=== PATIENT | female | born 1995 | race Caucasian/White ===

== ENCOUNTER 2021-10-03 14:06 | Emergency (ER) | payer OTHER, SELFPAY ==
[2021-10-03 14:39] VITALS: BP 114/77; PULSE 79; RESP 18; TEMP 36.6; O2SAT 99; BMI 32.6
--- NOTE | 2021-10-03 16:13 | ED_ITS ---
HPI - General Adult General Chief complaint: Vaginal Bleeding Stated complaint: heavy menstrual bleeding Time Seen by Provider: 10/03/21 14:09 Source: patient Mode of arrival: ambulatory Limitations: no limitations History of Present Illness HPI narrative: 26-year-old female coming in today complaining of vaginal bleeding. She states that about a month ago she started spotting. She is 11 months . She has had spotting on and off during this . A month ago it became consistent and then about 1 week ago she states that she started having which she describes as a very happy. Having to change a super pad tampon every 1/2 hour to 2 hours. Today she felt slightly lightheaded so she came in for evaluation. She denies any shortness of breath. No headaches or blurry vision. No chest pain. She states that she does have uterine fibroids. She does have an OBGYN appointment in approximately 2 weeks. She is not on any control and is sexually active. Related Data Previous Rx's Medication Instructions Recorded medroxyprogesterone 10 mg tablet 10 mg PO DAILY #10 tab 10/03/21 Allergies Allergy/AdvReac Type Severity Reaction Status Date / Time latex Allergy Verified 10/03/21 14:39 Penicillins Allergy Verified 10/03/21 14:39 Review of Systems Status of ROS: Reports: 10 or more systems reviewed and unremarkable except as noted in History and below Exam Narrative: Exam Narrative: Well-nourished well-developed patient in no acute distress. Alert and oriented. Answers questions appropriately. Mood and affect are appropriate. Thoughts are goal oriented and rational. No tangential or magical thinking noted. Patient speaks in full sentences without needing to catch their breath. HEENT: Normocephalic atraumatic. Pupils are equally round reactive to light. Extraocular muscles are intact. Conjunctivae are moist without any icterus noted. Moist mucous membranes. Posterior pharynx is normal. Neck is soft without any lymphadenopathy or thyromegaly. No masses are appreciated. Cardiovascular: Heart is regular rate and rhythm S1 and S2 are present without any murmurs. Lungs: Clear to auscultation bilaterally no wheezes rhonchi or rales are appreciated. Patient takes deep breaths without any discomfort. Abdomen: Soft and nondistended with normal bowel sounds. No guarding or rebound. No masses or organomegaly appreciated. She does have minimal suprapubic tenderness. Extremities: Bilateral lower extremities are without edema. Normal DP and PT pulses. Skin: Well perfused without any obvious rashes. Const: Vital Signs, click to edit/add: Vital Signs - 24 hr 10/03/21 14:39 Temperature 97.9 F Pulse Rate [Right Pulse Oximeter] 79 Respiratory Rate 18 Blood Pressure [Ri ght Upper Arm] 114/77 Pulse Oximetry 99 Course Vital Signs Vital signs: Initial Vital Signs Temperature 97.9 F 10/03/21 14:39 Temperature Source Temporal Artery Scan 10/03/21 14:39 Pulse Rate 79 10/03/21 14:39 Respiratory Rate 18 10/03/21 14:39 Blood Pressure 114/77 10/03/21 14:39 Blood Pressure Mean 89 10/03/21 14:39 Blood Pressure Position Sitting 10/03/21 14:39 Pulse Oximetry 99 10/03/21 14:39 Oxygen Delivery Method 10/03/21 14:39 Vital Signs Temperature 97.9 F 10/03/21 14:39 Pulse Rate 79 10/03/21 14:39 Respiratory Rate 18 10/03/21 14:39 Blood Pressure 114/77 10/03/21 14:39 Pulse Oximetry 99 10/03/21 14:39 Temperature 97.9 F 10/03/21 14:39 Pulse Rate 79 10/03/21 14:39 Respiratory Rate 18 10/03/21 14:39 Blood Pressure 114/77 10/03/21 14:39 Pulse Oximetry 99 10/03/21 14:39 Medical Decision Making MDM Narrative Medical decision making narrative: CBC did not show any evidence of acute anemia. test was negative. We discussed daily progesterone for the following 10 days. Patient already has an appointment with distribution operation supervisor scheduled for the beginning of October and she is encouraged to keep that. Discussed returning to the ER if bleeding worsens. Patient was agreeable and had no other questions. Lab Data Lab results reviewed: Yes I reviewed the patient's lab results Labs: Lab Results 10/03/21 10/03/21 Range/Units 16:00 16:50 WBC 5.63 (4.50-11.00) K/uL RBC 4.21 (4.00-5.20) m/uL Hgb 12.2 (12.0-16.0) gm/dL Hct 36.6 (33.0-51.0) % MCV 87 (80-100) fL MCH 29 (26-34) pg MCHC 33 (32-36) gm/dL RDW Coeff of Alessandro 11.5 (11.5-15.5) % Plt Count 251 (140-440) K/uL Neut % (Auto) 52.0 (42.0-72.0) % Lymph % (Auto) 39.1 (20-44) % [place] % (Auto) 5.7 (0.0-11.0) % Eos % (Auto) 2.1 (0.0-7.0) % Baso % (Auto) 0.7 (0.0-3.0) % Neut # (Auto) 2.93 (1.7-7.0) K/uL Lymph # (Auto) 2.20 (0.90-2.90) K/uL [place] # (Auto) 0.30 (0.00-0.90) K/UL Eos # (Auto) 0.12 (0.00-0.50) K/uL Baso # (Auto) 0.04 (0.00-0.30) K/uL Abs Immat Gran (auto) 0.02 (0.00-0.30) K/uL HCG, Qual Negative (Negative) Discharge Plan Discharge Clinical Impression: Menometrorrhagia Patient Disposition: Home, Self-Care Condition: Stable Additional Instructions: Take progesterone as instructed. Return to the ER if your bleeding gets worse. Prescriptions: New medroxyprogesterone 10 mg tablet 10 mg PO DAILY Qty: 10 0RF Follow Up/Referrals: Judie Sheehan MD [Primary Care Provider] - Stand Alone Forms: [employer] Info Instructions
[2021-10-03 16:27] LABS: Basophils Absolute Auto 0.04 K/uL (0.00-0.30); Basophils Percent Auto 0.7 % (0.0-3.0); Eosinophils Absolute Auto 0.12 K/uL (0.00-0.50); Eosinophils Percent Auto 2.1 % (0.0-7.0); Hematocrit 36.6 % (33.0-51.0); Hemoglobin* 12.2 gm/dL (12.0-16.0); Immature Granulocytes Abs Auto 0.02 K/uL (0.00-0.30); Lymphocytes Percent Auto 39.1 % (20-44); Mean Corpuscular HGB Conc 33 gm/dL (32-36); Mean Corpuscular Hemoglobin 29 pg (26-34); Mean Corpuscular Volume 87 fL (80-100); Monocytes Percent Auto 5.7 % (0.0-11.0); Neutrophils Absolute Auto 2.93 K/uL (1.7-7.0); Platelet Count* 251 K/uL (140-440); RDW Coefficient of Variation % 11.5 % (11.5-15.5); Red Blood Count 4.21 m/uL (4.00-5.20); White Blood Count* 5.63 K/uL (4.50-11.00)
[2021-10-03 16:34] LABS: Slide Review Reflex No
[2021-10-03 16:56] LABS: HCG Qualitative* Negative (Negative)
== END 2021-10-03 17:25 | disposition home or self-care (01) ==
PROVIDERS: Emergency Provider Family Medicine; PCP Family Medicine
DX: N92.1 Excessive and frequent menstruation with irregular cycle (principal)
CPT/HCPCS: 36415; 84703; 85025; 99283; 99284

== ENCOUNTER 2022-11-23 09:00 | Outpatient (RCR) | payer BC, OTHER, SELFPAY | END 2022-11-23 10:13 | disposition home or self-care (01) | PROVIDERS: PCP Family Medicine; Visit Provider Chiropractor | DX: O71.6 Obstetric damage to pelvic joints and ligaments (principal); Z51.89 Encounter for other specified aftercare | CPT/HCPCS: 97110; 97112; 97161; 97535 ==

== ENCOUNTER 2024-02-13 14:02 | Emergency (ER) | payer BC, SELFPAY ==
[2024-02-13 14:22] VITALS: BP 131/83; PULSE 84; RESP 18; TEMP 36.9; O2SAT 98; BMI 33.4
--- NOTE | 2024-02-13 15:19 | CRLHL7_ITS ---
For Patients: As a result of the Century Cures Act, medical imaging exams and procedure reports are released immediately into your electronic medical record. You may view this report before your referring provider. If you have questions, please contact your health care provider. Indication: Chest pain Technique: Chest 2 views Comparison: None Findings/Impression: Cardiovascular and mediastinum: Heart size and vasculature are normal in caliber and appearance. Mediastinum is within normal limits. Lungs and pleural spaces: Lungs are clear. No sign of infiltrate or mass. No sign of pleural effusion. No pneumothorax. Bones and soft tissues: No significant findings. Dictated by Claude Sarabia MD @ 02/13/2024 4:17:16 PM (Electronically Signed)
--- NOTE | 2024-02-13 15:21 | ED.GENADULT ---
HPI - General Adult General Date Seen: 02/13/24 Chief complaint: Chest Pain Stated complaint: Chest pain Time Seen by Provider: 02/13/24 15:11 Source: patient Mode of arrival: ambulatory Limitations: no limitations History of Present Illness HPI narrative: Patient is a 28-year-old woman here for evaluation of chest pain. She is 9 weeks , this is her 6 and she has 5 living children. She has no history of any hypercoagulability, did have placenta previa with 1 of her previous pregnancies, but denies other complications aside from nausea. She has had cough and cold symptoms for couple of weeks, notes that about 8 days ago she developed pain in the left side of her chest that is worse with deep breathing and with movement. She has not felt short of breath. She has not had a fever that she knows of. She has not had any vomiting, just nausea. Denies lower extremity swelling or pain. The chest pain had improved over the course of last week but then returned a couple days ago. She does not smoke or drink. General health is good. Related Data Previous Rx's ?Medication ?Instructions ?Recorded acetaminophen 500 mg tablet 1,000 mg (2 x 500 mg) PO Q6H PRN 08/20/22 #30 tabs docusate sodium 100 mg capsule 100 mg PO DAILY #30 caps 08/20/22 Allergies Allergy/AdvReac Type Severity Reaction Status Date / Time cat dander Allergy Verified 02/13/24 13:43 latex Allergy Verified 02/13/24 13:43 Review of Systems Status of ROS: Reports: 10 or more systems reviewed and unremarkable except as noted in History and below PFSH [facility] Medical History Autosomal recessive von Willebrand disease type 1 ?D68.01 - Von Willebrand disease, type 1 (ICD-10) Social History What is your current living situation?: I presently have a place to live Problems where you live: no known problems In the past 12 months, utilities in danger of being shut off: no In the past 12 mos, have been you worried that your food would run out before you had money to buy more?: never true In the past 12 mos, the food you bought just didn't last and you didn't have money to buy more?: never true Smoking Status: Never smoker Do you use any of these nicotine containing products: None How often do you have a drink containing alcohol: monthly or less AUDIT-C Alcohol total score: 1 Non-prescribed substance use: denies use How often does anyone, including family, friends and others, physically hurt you: never How often does anyone, including family, friends and others, insult or talk down to you: never How often does anyone, including family, friends and others, threaten you with harm: never How often does anyone, including family, friends and others, scream or curse at you: never Exam Narrative: Exam Narrative: Vital signs reviewed In general, alert, nontoxic woman. Head: Normocephalic, atraumatic. Eyes: Sclera clear. Pupils equal and reactive. ENT: Mucous membranes moist. Neck: Supple without adenopathy. Heart: Regular rate and rhythm without murmur. Lungs: Clear. No increased work of breathing, crackles or wheezes. Abdomen: Soft, nondistended. No abdominal tenderness, specifically no right upper quadrant or epigastric tenderness, negative Harrison's. Extremities: Well perfused, pulses intact. No significant edema. Neurologic: Alert, conversant. Speech fluent, face symmetric. Moves all extremities equally. Skin: Warm, dry well perfused. Affect: Normal. Const: Vital Signs, click to edit/add: Vital Signs - 24 hr 02/13/24 14:22 Temperature 98.4 F Pulse Rate [Pulse Oximeter] 84 Respiratory Rate 18 Blood Pressure [Ri ght Upper Arm] 131/83 Pulse Oximetry 98 Oxygen Delivery Me thod Room Air Documenting provider has reviewed patient's vital signs: yes Course Course ED Course: Patient refused testing for COVID influenza RSV. She declines nausea medicine or pain medication. Diagnostic considerations would include pulmonary embolism although with 5 prior pregnancies and no hypercoagulability problems, this seems somewhat less likely. Other possibilities would include musculoskeletal pain, pneumonia, pneumothorax, less likely intra-abdominal problems such as gastroesophageal reflux, pancreatitis, biliary symptoms given the absence of any abdominal pain or tenderness. She is 9 weeks , I would like to avoid CT scanning. She has no hypoxia, tachycardia, tachypnea. Plan will be to check a D-dimer, if this is positive I recommended that we do Dopplers of her legs as a next test. Patient continues to decline anything for pain or nausea, here or at discharge. Chest x-ray by my review is negative, final radiology read is negative. Her labs are notable for a white blood cell count of 11.3, I would consider this normal for . Hemoglobin is 14.5. Diff is unremarkable. D-dimer is 0.56, by years criteria she rules out for PE. Metabolic panel was normal, CRP is 1.2. Point of care troponin is 0. She did have an EKG here which showed a normal sinus rhythm, ventricular rate of 71. No acute ST segment changes, unremarkable T-waves, normal indices. At this point, I have discussed with her I think chest pain is possibly chest wall related, could consider a GI source as well such as GERD. She does not want any medications for treatment. She does not vaccinate, so I a.m. going to send a swab for pertussis, discussed with her I would recommend treatment with antibiotics if that is positive. Discussed that there are certainly medications available if she needs something for pain or nausea, she can talk with Dr. Sheehan if she changes her mind about this. Return any time for severe uncontrolled pain, new symptoms such as significant shortness of breath, fevers, vomiting or other worsening. Vital Signs Vital signs: Initial Vital Signs Temperature 98.4 F 02/13/24 14:22 Temperature Source Temporal Artery Scan 02/13/24 14:22 Pulse Rate 84 02/13/24 14:22 Respiratory Rate 18 02/13/24 14:22 Blood Pressure 131/83 02/13/24 14:22 Blood Pressure Mean 99 02/13/24 14:22 Pulse Oximetry 98 02/13/24 14:22 Oxygen Delivery Method Room Air 02/13/24 14:22 Vital Signs Temperature 98.4 F 02/13/24 14:22 Pulse Rate 84 02/13/24 14:22 Respiratory Rate 18 02/13/24 14:22 Blood Pressure 131/83 02/13/24 14:22 Pulse Oximetry 98 02/13/24 14:22 Oxygen Delivery Method Room Air 02/13/24 14:22 Temperature 98.4 F 02/13/24 14:22 Pulse Rate 84 02/13/24 14:22 Respiratory Rate 18 02/13/24 14:22 Blood Pressure 131/83 02/13/24 14:22 Pulse Oximetry 98 02/13/24 14:22 Oxygen Delivery Method Room Air 02/13/24 14:22 Medical Decision Making Lab Data Labs: Lab Results 02/13/24 02/13/24 Range/Units 15:27 15:30 WBC 11.27 H (4.50-11.00) K/uL RBC 5.11 (4.00-5.20) m/uL Hgb 14.5 (12.0-16.0) gm/dL Hct 43.6 (33.0-51.0) % MCV 85 (80-100) fL MCH 28 (26-34) pg MCHC 33 (32-36) gm/dL RDW Coeff of Alessandro 12.2 (11.5-15.5) % Plt Count 244 (140-440) K/uL Neut % (Auto) 69.9 (42.0-72.0) % Lymph % (Auto) 21.1 (20-44) % [place] % (Auto) 6.0 (0.0-11.0) % Eos % (Auto) 2.5 (0.0-7.0) % Baso % (Auto) 0.4 (0.0-3.0) % Neut # (Auto) 7.90 H (1.7-7.0) K/uL Lymph # (Auto) 2.40 (0.90-2.90) K/uL [place] # (Auto) 0.70 (0.00-0.90) K/UL Eos # (Auto) 0.30 (0.00-0.50) K/uL Baso # (Auto) 0.00 (0.00-0.30) K/uL Abs Immat Gran (auto) 0.00 (0.00-0.30) K/uL Imm/Tot Granulo (auto) 0.1 % D-Dimer Quant (PE/DVT) 0.56 H (0.00-0.50) ug/ml Sodium 135 (135-149) mmol/L Potassium 3.7 (3.6-5.1) mmol/L Chloride 105 (96-114) mmol/L Carbon Dioxide 22 (20-32) mmol/L Anion Gap 8 (7-15) mEq/L BUN 7 (5-24) mg/dL Creatinine 0.5 (0.5-1.5) mg/dL Estimated Creat Clear 154.02 Estimated GFR 129 ml/min Glucose 83 (60-115) mg/dL Calcium 8.8 (8.4-10.6) mg/dL C-Reactive Protein 1.2 H (0.5-1.0) mg/dL POC Troponin I 0.00 L (0.01-0.04) ng/ml Imaging Data Chest x-ray: Attestation: I have reviewed the pertinent imaging results. Radiologist's impression: [address] [address] Diagnostic Imaging Report Patient: Bruno Spencer MR#: [id number] : 1995 Acct:[id number] Loc: ED Service Date: 02/13/[address]: Ordering Physician: Astrid Laughlin M.D. Date of Service: 02/13/24 Procedure(s): XR chest 2V Accession Number(s): [id number] cc: Astrid Laughlin M.D.; Judie Sheehan M.D.~ For Patients: As a result of the Cures Act, medical imaging exams and procedure reports are released immediately into your electronic medical record. You may view this report before your referring provider. If you have questions, please contact your health care provider. Indication: Chest pain Technique: Chest 2 views Comparison: None Findings/Impression: Cardiovascular and mediastinum: Heart size and vasculature are normal in caliber and appearance. Mediastinum is within normal limits. Lungs and pleural spaces: Lungs are clear. No sign of infiltrate or mass. No sign of pleural effusion. No pneumothorax. Bones and soft tissues: No significant findings. Dictated by Claude Sarabia MD @ 02/13/2024 4:17:16 PM Discharge Plan Discharge Clinical Impression: Chest wall pain Patient Disposition: Home, Self-Care Condition: Stable Instructions: Chest Wall Pain (ED) Additional Instructions: Your testing all is reassuring today. I do not see any evidence of a pneumonia, collapsed lung, blood clot, or other significant problem. We did do testing for pertussis and we will call you if this is positive as I would recommend treating with antibiotics in that case. Otherwise, symptoms are most likely related to chest wall inflammation from coughing. You can use Tylenol, if you decide you would like something different please talk with Dr. Sheehan. Ice or heat may be helpful as well. Nausea medicines are available to you as well if you would like, discuss with Dr. Sheehan. For new or worsening symptoms such as fever, severe uncontrolled pain, significant shortness of breath, vomiting, etcetera, return at any time to the emergency department. Otherwise, follow up with Dr. Sheehan as discussed. Prescriptions: No Action acetaminophen 500 mg Tablet 1,000 mg PO Q6H PRNQty: 30 0RF docusate sodium 100 mg Capsule 100 mg PO DAILY Qty: 30 0RF Follow Up/Referrals: Judie Sheehan MD [Primary Care Provider] - Stand Alone Forms: [employer] Info Instructions
[2024-02-13 15:48] LABS: Basophils Percent Auto 0.4 % (0.0-3.0); Eosinophils Percent Auto 2.5 % (0.0-7.0); Hematocrit 43.6 % (33.0-51.0); Hemoglobin* 14.5 gm/dL (12.0-16.0); Immature Granulocytes Pct Auto 0.1 %; Lymphocytes Percent Auto 21.1 % (20-44); Mean Corpuscular HGB Conc 33 gm/dL (32-36); Mean Corpuscular Hemoglobin 28 pg (26-34); Mean Corpuscular Volume 85 fL (80-100); Neutrophils Percent Auto 69.9 % (42.0-72.0); Platelet Count* 244 K/uL (140-440); RDW Coefficient of Variation % 12.2 % (11.5-15.5); Red Blood Count 5.11 m/uL (4.00-5.20); White Blood Count* 11.27 K/uL (4.50-11.00)
[2024-02-13 15:53] LABS: Slide Review Reflex No
[2024-02-13 16:01] LABS: Chloride* 105 mmol/L (96-114); Potassium* 3.7 mmol/L (3.6-5.1); Sodium* 135 mmol/L (135-149)
[2024-02-13 16:03] LABS: Creatinine* 0.5 mg/dL (0.5-1.5); Est. Creatinine Clearance* 154.02; Estimated Glomerular Filt Rate 129 ml/min
[2024-02-13 16:04] LABS: Anion Gap 8 mEq/L (7-15); Blood Urea Nitrogen* 7 mg/dL (5-24); Carbon Dioxide* 22 mmol/L (20-32)
[2024-02-13 16:05] LABS: Calcium* 8.8 mg/dL (8.4-10.6); Glucose* 83 mg/dL (60-115)
[2024-02-13 16:07] LABS: C Reactive Protein* 1.2 mg/dL (0.5-1.0); D Dimer Quantitative* 0.56 ug/ml (0.00-0.50)
--- NOTE | 2024-02-13 17:06 | ED.NURSE ---
Patient refused pertussis swab. I suggested we do this as there would be an available treatment. She reports too much discomfort with nasal swab and declines this test.
== END 2024-02-13 17:00 | disposition home or self-care (01) ==
PROVIDERS: Emergency Provider Emergency Medicine; PCP Family Medicine
DX: R07.89 Other chest pain (principal)
CPT/HCPCS: 36415; 71046; 80048; 84484; 85025; 85379; 86140; 99284

== ENCOUNTER 2024-03-18 14:30 | Outpatient (RCR) | payer BC, SELFPAY | END 2024-05-31 10:23 | disposition home or self-care (01) | PROVIDERS: PCP Family Medicine; Visit Provider Family Medicine | DX: M53.3 Sacrococcygeal disorders, not elsewhere classified (principal); M25.571 Pain in right ankle and joints of right foot; G89.29 Other chronic pain; M25.371 Other instability, right ankle; R10.2 Pelvic and perineal pain; Z51.89 Encounter for other specified aftercare | CPT/HCPCS: 97110; 97112; 97140; 97161 ==

== ENCOUNTER 2024-09-11 06:06 | Inpatient (IN) | payer BC, SELFPAY ==
[2024-09-11] VITALS (18 sets, daily range): BP systolic 97–129; BP diastolic 56–79; PULSE 73–98; RESP 16–18; TEMP 36.2–36.9; O2SAT 98–99; BMI 35.6
[2024-09-11 07:26] LABS: Basophils Absolute Auto 0.01 K/uL (0.00-0.30); Basophils Percent Auto 0.1 % (0.0-3.0); Eosinophils Absolute Auto 0.05 K/uL (0.00-0.50); Eosinophils Percent Auto 0.6 % (0.0-7.0); Hematocrit 41.3 % (33.0-51.0); Immature Granulocytes Abs Auto 0.09 K/uL (0.00-0.30); Immature Granulocytes Pct Auto 1.1 %; Lymphocytes Absolute Auto 1.71 K/uL (0.90-2.90); Lymphocytes Percent Auto 21.6 % (20-44); Mean Corpuscular HGB Conc 34 gm/dL (32-36); Mean Corpuscular Hemoglobin 30 pg (26-34); Mean Corpuscular Volume 87 fL (80-100); Monocytes Percent Auto 7.1 % (0.0-11.0); Neutrophils Percent Auto 69.5 % (42.0-72.0); Platelet Count* 201 K/uL (140-440); RDW Coefficient of Variation % 12.3 % (11.5-15.5); Red Blood Count 4.75 m/uL (4.00-5.20); White Blood Count* 7.92 K/uL (4.50-11.00)
[2024-09-11 07:28] LABS: Slide Review Reflex No
[2024-09-11] MEDS: LACTATED RINGERS 1000 ML 1,000 ML 125 ML IV (08:23)
[2024-09-11] MEDS: OXYTOCIN 30 unit/500 ML in NS 30 UNIT/500 ML BAG IVPB (08:24)
--- NOTE | 2024-09-11 08:27 | P.OBHP_ITS ---
OB - H&P: HPI Labor/Induction History of Present Illness Date Seen: 09/11/24 Chief Complaint: The patient is a 28 year old 6 para 5 at 39 weeks gestation by LMP confirmed with 1st trimester US, who presents for IOL for IUGR. Chief complaint: IOL IUGR : 6 Para: 5 Narrative: Bruno Spencer is a 28 year old 6 para 5 at 39 weeks gestation by LMP confirmed with 1st trimester US, who presents for IOL for IUGR. complicated by maternal VWD with history of pp hemorrhage in 2016 adn 2018. She has had hematology consultation and recommendation of pitocin and TXA at delivery with DDAVP at cord clamping. Fetus also noted to be IUGR with EFW 2214g (9%) at 35 weeks. Has been undergoing weekly BPP and NST and these have been reassuring. History of Present Dating criteria: based on LMP care: good care Ultrasounds: normal 1st trimester US and normal mid trimester US Abnormal ultrasound findings: IUGR 2214 g (9%) at 35 weeks. Narrative: VWD with history of pp hemorrhage Labs Blood type: O (+) positive Rubella: immune RPR/VDLR: nonreactive GBS status: negative HBsAG: negative Review of Systems Status of ROS: Reports: 6 or more systems reviewed and unremarkable except as noted in History and below Narrative: Had food poisoning over the weekend, no more vomiting, diarrhea better Meds Home Medications and Allergies Home Medications ?Medication ?Instructions ?Recorded ?Confirmed ?Type 1 tab 09/11/24 History Allergies Allergy/AdvReac Type Severity Reaction Status Date / Time cat dander Allergy Verified 02/13/24 13:43 cyanocobalamin (vitamin B12) Allergy rash Verified 09/11/24 06:50 (From Rubramin PC) latex Allergy Verified 02/13/24 13:43 OB - H&P: Exam 2 Physical Exam: Vital signs: Temp Pulse Resp BP Pulse Ox 97.1 F L 90 16 123/79 99 09/11/24 06:24 09/11/24 08:16 09/11/24 06:24 09/11/24 08:16 09/11/24 06:26 Constitutional: Constitutional: no acute distress Routine HEENT Exam: Head: Present atraumatic Eye: Present EOMI and normal appearance ENT: Present mucous membranes moist Routine Neck Exam: Neck: Present full ROM Routine Respiratory Exam: Respiratory: Present CTA bilaterally Routine Cardiovascular Exam: Cardiovascular: RRR Routine Exam: Perineum Description: Normal Detailed Labor and Delivery Exam: Patient Gravid: yes Dilation (cm): 4 Effacement (%): 70 Cervix position: anterior Consistency: soft Cervical ripeness score: 10 Fetus (Single): Station: -1 Amniotic Membrane Status: AROM Amniotic Membrane Fluid Description: Clear Heart Rate Baseline: 140 Monitor Accelerations: Present Monitor Decelerations: None Regulatory Affairs Intern Variability: Moderate (6-25) Routine Skin Exam: Present intact and warm Routine Neurological Exam: Present alert, oriented X3 and CN II-XII intact Routine Psychiatric Exam: Present normal affect and normal thought process OB - Results Labs Labs: Short CBC 09/11/24 Range/Units 07:19 WBC 7.92 (4.50-11.00) K/uL Hgb 14.0 (12.0-16.0) gm/dL Hct 41.3 (33.0-51.0) % Plt Count 201 (140-440) K/uL OB - Problem Based A/P Additional Plan (1) Autosomal recessive von Willebrand disease type 1: Problem details: treated with DDAVP at delivery abd Txa prophylactically Status: Acute (2) IUGR (intrauterine growth restriction): Status: Acute Plan AROM with clear fluid. Starting pitocin. For high risk of pph, 2 units are type and crossed. PLan for pitocin and TXA 1 g IV at delivery and DDAVP 26.5 mcg at cord clamping. Delivery/Labor/Induction Plan Plan: induction Induction method: AROM
[2024-09-11] MEDS: TRANEXAMIC ACID 100 MG/ML INJ 1000 MG IV (11:11)
[2024-09-11] MEDS: DESMOPRESSIN ACETATE 4 MCG/ML inj 26.5 MCG IVP (11:17)
[2024-09-11] MEDS: miSOPROStoL 800 MCG/4 TABLET PR (11:30)
[2024-09-11] MEDS: LIDOCAINE 1 % PF 30 ML INJECTION (11:31)
--- NOTE | 2024-09-11 11:51 | W.PM.VAGDEL1 ---
Procedure Procedure Done: Global Events: Labor Induction Intrapartal Events: Labor Induction Delivery monitor: external FHT and external uterine Route of delivery: Laceration description: Perineal - 2nd Degree Delivery repair: Vicryl Estimated blood loss (mL): 150 Anesthesia type: None Disposition: floor Narrative: The patient is a 28 year-old admitted on 09/11/24 at 39 Weeks, 0 Days gestation for IOL for IUGR.? Cervical exam on admission was 4 cm/70 % effaced/-1 station with membranes intact in vertex presentation.? Contractions were absent.? heart rate demonstrated baseline 140 bpm with moderate variability, + accelerations, - decelerations; a category 1 tracing.? AROM occurred at 0810 with clear fluid. Pitocin was started shortly after AROM. ? Labor Analgesia:? none ? Pitocin:? yes ? Labor onset:? 1042 ? Complete:? 1108 ? Pushing:? 1110 ? heart tones during second stage were category 1. ? At 1111 a viable female infant delivered in vertex OA presentation over intact perineum via spontaneous vaginal delivery.? Infant was placed on maternal abdomen.? Cord was clamped and cut after a 30-60 second delay.? Nose and mouth were bulb suctioned.? Infant weight pending.? 9 at 1 minute and 9 at 5 minutes.? Shoulder dystocia: no.? Nuchal cord: no. Due to maternal VWD, in addition to IV pitocin, TXA given at the time of delivery over 10 minutes. She was also given desmopressin after cord clamping. As provider starting to prepare to repair laceration, patient had a gush of blood and uterus was boggy, bimanual massage performed and rectal cytotec given to prevent further pp hemorrhage. Uterus remained firm for remainder of early course. ? Placenta delivered spontaneously and complete at 1118 with a 3 vessel cord. ? Mother and infant were stable after delivery. ? Lacerations:? 2nd degree perineal, repaired with 3-0 vicryl. ? Blood loss: 150 mL. Blood loss measurement type: QBL ? Sponge and needles counts are correct. Infant Infant Gender: Female presentation: vertex Placental Delivery Description: Spontaneous Cord Description: 3 Vessels
[2024-09-11] MEDS: ACETAMINOPHEN 500 MG TABLET 1000 MG PO ×2 (11:58→19:44)
[2024-09-11] MEDS: LOPERAMIDE HCL 2 MG CAPSULE 4 MG PO (22:00)
[2024-09-12 00:05] VITALS: BP 107/67; PULSE 78; RESP 16; TEMP 36.8; O2SAT 97
[2024-09-12 04:25] VITALS: BP 94/58; PULSE 64; RESP 16; TEMP 36.5; O2SAT 98
[2024-09-12 06:25] LABS: Hemoglobin* 11.7 gm/dL (12.0-16.0)
[2024-09-12 09:51] VITALS: BP 100/65; PULSE 90; RESP 16; O2SAT 97
--- NOTE | 2024-09-12 12:45 | P.DS_ITS ---
DS: Providers Provider Time Seen by Provider: 08:00 Date Seen: 09/12/24 Date of admission: 09/11/24 06:06 Primary care physician: Judie Sheehan MD Admitting Clinician: Judie Sheehan MD Attending Physician on discharge: Judie Sheehan MD Date of Discharge: 09/12/24 DS: Diagnosis Discharge Diagnosis (1) (normal spontaneous vaginal delivery): Status: Acute Problem details: Doing well . Ambulating, voiding, tolerating orals. Lochia mild. hgb 11.7. Doing well, plan d/c home. (2) Autosomal recessive von Willebrand disease type 1: Status: Acute Problem details: treated with DDAVP at delivery and Txa prophylactically Exam Const: Vital Signs, click to edit/add: Vital Signs - 24 hr 09/11/24 12:46 09/11/24 13:00 09/11/24 13:15 Temperature Pulse Rate 86 81 80 Pulse Rate [Blood Pressure Cuff] Respiratory Rate Blood Pressure 105/56 L 110/62 109/61 Blood Pressure [Le ft Arm] Pulse Oximetry Oxygen Delivery Me thod 09/11/24 16:02 09/11/24 19:37 09/12/24 00:05 Temperature 98.4 F 98.1 F 98.2 F Pulse Rate Pulse Rate [Blood Pressure Cuff] 88 80 78 Respiratory Rate 17 16 16 Blood Pressure Blood Pressure [Le ft Arm] 103/66 108/67 107/67 Pulse Oximetry 97 Oxygen Delivery Me thod Room Air Room Air Room Air 09/12/24 04:25 09/12/24 09:51 Temperature 97.7 F Pulse Rate Pulse Rate [Blood Pressure Cuff] 64 90 Respiratory Rate 16 16 Blood Pressure Blood Pressure [Le ft Arm] 94/58 L 100/65 Pulse Oximetry 98 97 Oxygen Delivery Me thod Room Air Room Air Documenting provider has reviewed patient's vital signs: yes Common normals: no apparent distress, healthy appearing and alert General appearance: cooperative and comfortable : Uterus: U/1 and firm Neuro: Sensorium/orientation: alert OB - DS: Summary Hospital Course Hospital Course: The patient is a 28 year old G 6 P 5 at 39 weeks gestation that was admitted to the Center on 09/11/24 for induction due to IUGR. complicated by maternal VWD with history of pp hemorrhage in 2016 and 2018. She has had hematology consultation and recommendation of pitocin and TXA at delivery with DDAVP at cord clamping. This was performed and pt did not have any significant bleeding. She had an uncomplicated vaginal delivery. She has done well . Ambulating, voiding, stooling, tolerating orals. Lochia mild. Pt would like to discharge home today. Gender: Female Time Spent with Patient Time attestation: Total time spent providing and/or coordinating discharge services: Discharge Plan Discharge Disposition: Home, Self-Care Date of Admission: 09/11/24 06:06 Primary Care Provider: Judie Sheehan Condition: Stable Anticipated Discharge Date/Time: 09/12/24 12:56 Discharge Medications: Continued 1 tab Discharge Orders: Discharge Order (Routine); Ordered 09/12/24 Ordered By: Magdalene Baird Patient Education: OB Vaginal/Breast Feeding Activity Detail: No tampons or intercourse for 6 weeks Discharge Diet: Regular Follow Up Appointments: Judie Sheehan MD [Primary Care Provider, Family Practice] Referral Note: Schedule 6week visit [facility]: [facility] Inst[facility]
[2024-09-12 18:54] LABS: Rapid Plasma Reagin (RPR) Non Reactive (Non Reactive)
[2024-09-14 20:53] LABS: von WillebrandFactorAntigen 121 % (52-214); vonWillebrandFactorActivityRCF 150 % (51-215)
== END 2024-09-12 13:15 | disposition home or self-care (01) | DRG 560 ==
PROVIDERS: Admitting Provider Family Medicine; PCP Family Medicine; Visit Provider Family Medicine
DX: O36.5930 Maternal care for other known or suspected poor fetal growth, third trimester, not applicable or unspecified (principal); O99.12 Other diseases of the blood and blood-forming organs and certain disorders involving the immune mechanism complicating childbirth; D68.01 Von Willebrand disease, type 1; O70.1 Second degree perineal laceration during delivery; Z37.0 Single live birth; Z3A.39 39 weeks gestation of pregnancy
CPT/HCPCS: 36415; 85018; 85025; 85240; 85245; 85246; 86592; 86850; 86900; 86901; 86922; A9270; J2003; J2597; J7120